=== PATIENT | female | born 1990 | race Caucasian/White ===

== ENCOUNTER 2020-03-08 21:45 | Observation (INO) | payer OTHER, SELFPAY ==
--- NOTE | ~2020-03-08 | US_ITS ---
EXAMINATION: US OB limited w BPP DATE: 03/09/2020 08:09 INDICATION: Decelerations. Third trimester. Leaking fluid. TECHNIQUE: Real-time pelvic ultrasound was performed. COMPARISON: None. FINDINGS: There is a single living fetus in vertex presentation. The placenta is posterior. heart rate i s 122 beats per minute (bpm). The amniotic fluid index is 14.2 cm, which is normal. Biophysical profile performed by the technologist: breathing (30 sec sustained breathing in 30 minutes): 2 out of 2 movement (3 gross body movements in 30 minutes): 2 out of 2 tone (one episode of fbsqhpw-hmlkyiqki-xpfqgte limb movement): 2 out of 2 Amniotic fluid pocket (2 cm): 2 out of 2 Total score: 8 out of 8 IMPRESSION: 1. Single living fetus in vertex presentation. 2. Biophysical profile 8 out of 8. Reviewed, dictated and finalized at location A. BILLING CLERK
[2020-03-09 03:00] VITALS: TEMP 37.1
[2020-03-09 06:30] VITALS: BMI 44.0
--- NOTE | 2020-03-13 07:29 | PM.OBTRLD ---
OB - Triage/Final Diagnosis Visit Information Date of evaluation: 03/09/20 Reason for evaluation: threatened labor
== END 2020-03-09 08:50 | disposition home or self-care (01) ==
PROVIDERS: Admitting Provider Obstetrics & Gynecology; Visit Provider Obstetrics & Gynecology
DX: O47.03 False labor before 37 completed weeks of gestation, third trimester (principal); Z3A.36 36 weeks gestation of pregnancy
CPT/HCPCS: 76815; 76819; 84112; G0378; G0379

== ENCOUNTER 2020-03-17 12:36 | Inpatient (IN) | payer OTHER, SELFPAY ==
[2020-03-17] VITALS (171 sets, daily range): BP systolic 79–166; BP diastolic 49–143; PULSE 64–276; TEMP 36.2–37.9; O2SAT 89–100; BMI 44.8
--- OUTSIDE RECORDS SUMMARY | 2020-03-17 13:04 | XMS_ITS | Encounter Summary ---
:1990 Author Care Team Providers Name Role Phone Raúl Russo Primary Care Provider [phone] Reason for Visit None recorded. Assessment and Plan 1. Placenta circumvallata ? US, obstetric, follow-up Discussion Note: None recorded.Patient educational handouts: No information available. Plan of Care Reminders Provider Appointments Ob Routine Anne Gastelum CNM 03/21/2020 10:30AM Lab None ? ? recorded. Referral None ? ? recorded. Procedures None ? ? recorded. Surgeries None ? ? recorded. Imaging , [place] Obstetric, Follow-up 02/09/2020 Medications Name Start Date ? ? Afluria Qd (36 mos up)(PF)60 mcg (15 mcg x4)/0 .5 mL IM syringe ? ADM 0.5ML IM UTD Boostrix Tdap 2.5 Lf unit-8 mcg-5 Lf/0.5 mL intramuscu lar syringe ? ADM 0.5ML IM UTD ? Medications Administered None recorded. Vitals None recorded. Results Lab Results None recorded. Allergies Code Code System Name Reaction Severity Onset NKDA ? ? ? Problems Name Status Onset Date Source ?
--- OUTSIDE RECORDS SUMMARY | 2020-03-17 13:04 | XMS_ITS | Encounter Summary ---
:1990 Author Care Team Providers Name Role Phone Raúl Russo Primary Care Provider [phone] Reason for Visit OB visit OB [id number] EDC 04/02/2020 LMP 06/27/2019 Assessment and Plan 1. Routine care Discussion Note: None recorded.Patient educational handouts: No information available. Plan of Care Reminders Provider Appointments Ob Routine Anne Gastelum CNM 03/21/2020 10:30AM Lab None ? ? recorded. Referral None ? ? recorded. Procedures None ? ? recorded. Surgeries None ? ? recorded. Imaging None ? ? recorded. Medications Name Start Date ? ? Afluria Qd (36 mos up)(PF)60 mcg (15 mcg x4)/0 .5 mL IM syringe ? ADM 0.5ML IM UTD Boostrix Tdap 2.5 Lf unit-8 mcg-5 Lf/0.5 mL intramuscu lar syringe ? ADM 0.5ML IM UTD ? Medications Administered None recorded. Vitals Height Weight BMI Blood Pressure 5 ft 5.5 in 281 lbs 46 kg/m2 130/86 mm[Hg] Results Lab Results None recorded. Allergies Code Code System Name Reaction Severity Onset NKDA ? ? ? Problems Name Status Onset Date Source
--- OUTSIDE RECORDS SUMMARY | 2020-03-17 13:04 | XMS_ITS | Encounter Summary ---
:1990 Author Care Team Providers Name Role Phone Raúl Russo Primary Care Provider [phone] Reason for Visit OB visit OB [id number] EDC 04/02/2020 LMP 06/27/2019 Assessment and Plan Assessment Note Patient is _28__weeks . Dis cussed plan. 1. Routine care Discussion Note: None recorded.Patient [...] BMI Blood Pressure 5 ft 5.5 in 247 lbs 40.5 kg/m2 134/87 mm[Hg] Results Lab Results None recorded. Allergies Code Code System Name Reaction Severity Onset
--- OUTSIDE RECORDS SUMMARY | 2020-03-17 13:04 | XMS_ITS ---
:1990 Author Care Team Providers Name Role Phone LESLIE MERCHANT Primary Care Provider [phone] Allergies Code Code System Name Reaction Severity Status Onset NKDA ? Medications Name Status Start Date Stop Date ? ? Adderall 20 mg tablet Completed ? 02/09/2020 Take 1 tablet every day by oral route. Adderall XR 20 mg capsule,extended release Completed ? 03/12/2020 TK 1 C PO ELECTRONICS DEPARTMENT MANAGER Afluria Qd (36 mos up)(PF)60 mcg (15 mcg x4)/0.5 mL IM s yringe Active ? Not available ADM 0.5ML IM UTD Boostrix Tdap 2.5 Lf unit-8 mcg-5 Lf/0.5 mL intramuscular syring e Active ? Not available ADM 0.5ML IM UTD Active ? Not available Problems Name Status Onset Date Source ? Active 10/19/2019 ? Procedures Date Name Performed by ? 10/05/2019 US, Obstetric, 1St Trimester [facility] [address] [place] [address] ([address]) 11/16/2019 , Obstetric, 2Nd or 3Rd Trimester [facility] [address] [place] [address] (Work [address]) 12/15/2019 US, Obstetric, Follow-up [facility] [address] [place] [address]
--- OUTSIDE RECORDS SUMMARY | 2020-03-17 13:04 | XMS_ITS | Encounter Summary ---
:1990 Author Care Team Providers Name Role Phone Raúl Russo Primary Care Provider [phone] Reason for Visit OB visit 32wks 3days Assessment and Plan 1. Routine care Discussion [...] BMI Blood Pressure 5 ft 5.5 in 258 lbs 42.3 kg/m2 128/86 mm[Hg] Results Lab Results None recorded. Allergies Code Code System Name Reaction Severity Onset NKDA ? ? ? Problems Name Status Onset Date Source ?
--- OUTSIDE RECORDS SUMMARY | 2020-03-17 13:04 | XMS_ITS | Encounter Summary ---
:1990 Author Care Team Providers Name Role Phone Raúl Russo Primary Care Provider [phone] Reason for Visit OB visit OB [id number] EDC 04/02/2020 LMP 06/27/2019 Assessment and Plan Assessment Note Patient is _30__weeks . Dis cussed plan. 1. Routine care [...] BMI Blood Pressure 5 ft 5.5 in 254 lbs 41.6 kg/m2 121/81 mm[Hg] Results Lab Results None recorded. Allergies Code Code System Name Reaction Severity Onset
--- OUTSIDE RECORDS SUMMARY | 2020-03-17 13:04 | XMS_ITS | Encounter Summary ---
:1990 Author Care Team Providers Name Role Phone Raúl Russo Primary Care Provider [phone] Reason for Visit None recorded. Assessment and Plan 1. Placenta circumvallata ? US, obstetric, follow-up Discussion Note: None recorded.Patient educational handouts: No information available. Plan of Care Reminders Provider Appointments Ob Routine Anne Gastelum CNM 03/21/2020 10:30AM Lab None ? ? recorded. Referral None ? ? recorded. Procedures None ? ? recorded. Surgeries None ? ? recorded. Imaging , [place] Obstetric, Follow-up 03/08/2020 Medications Name Start Date ? ? Afluria Qd 2019- (36 mos up)(PF)60 mcg (15 mcg x4)/0 [...]
--- OUTSIDE RECORDS SUMMARY | 2020-03-17 13:04 | XMS_ITS | Encounter Summary ---
:1990 Author Care Team Providers Name Role Phone Raúl Russo Primary Care Provider [phone] Reason for Visit OB visit OB [id number] EDC 04/02/2020 LMP 06/27/2019 Assessment and Plan 1. Routine care Discussion Note: None recorded.Patient educational handouts: No information available. Plan of Care Reminders Provider Appointments Ob Routine Anne jesus EduardopremaLESA 03/21/2020 10:30AM Lab None ? ? recorded. [...] BMI Blood Pressure 5 ft 5.5 in 280 lbs 45.9 kg/m2 138/87 mm[Hg] Results Lab Results None recorded. Allergies Code Code System Name Reaction Severity Onset NKDA ? ? ? Problems Name Status Onset Date Source
--- OUTSIDE RECORDS SUMMARY | 2020-03-17 13:04 | XMS_ITS | Encounter Summary ---
:1990 Author Care Team Providers Name Role Phone Raúl Russo Primary Care Provider [phone] Reason for Visit None recorded. Assessment and Plan 1. Medical examination for suspe cted condition ? US, obstetric, limited Discussion Note: None recorded.Patient educational handouts: No information available. Plan of Care Reminders Provider Appointments Ob Routine Anne Gastelum CNM 03/21/2020 10:30AM Lab None ? ? recorded. Referral None ? ? recorded. Procedures None ? ? recorded. Surgeries None ? ? recorded. Imaging US, [place] Obstetric, Limited 03/12/2020 Medications Name Start Date ? ? Afluria [...]
--- OUTSIDE RECORDS SUMMARY | 2020-03-17 13:04 | XMS_ITS | Encounter Summary ---
:1990 Author Care Team Providers Name Role Phone Raúl Russo Primary Care Provider [phone] Reason for Visit None recorded. Assessment and Plan 1. AND/OR placental disord er affecting management of mother ? US, obstetric, follow-up Discussion Note: None recorded.Patient educational handouts: No information available. Plan of Care Reminders Provider Appointments Ob Routine Anne Gastelum CNM 03/21/2020 10:30AM Lab None ? ? recorded. Referral None ? ? recorded. Procedures None ? ? recorded. Surgeries None ? ? recorded. Imaging [facility] Obstetric, Follow-up 01/13/2020 Medications Name Start Date ? ? Afluria [...]
--- OUTSIDE RECORDS SUMMARY | 2020-03-17 13:04 | XMS_ITS | Encounter Summary ---
:1990 Author Care Team Providers Name Role Phone Raúl Russo Primary Care Provider [phone] Reason for Visit OB visit 35wks 3days Assessment and Plan 1. Routine care [...] BMI Blood Pressure 5 ft 5.5 in 270 lbs 44.2 kg/m2 123/84 mm[Hg] Results Lab Results None recorded. Allergies Code Code System Name Reaction Severity Onset NKDA ? ? ? Problems Name Status Onset Date Source ?
--- NOTE | 2020-03-17 13:08 | WPDOBADMIT ---
Obstetrics - Admit Note Admission Note: record reviewed. No pertinent additions to the history and/or any subsequent changes in the physical findings that are not consistent with the expected course of the were found. GBS+, Pt arrived after SROM at home Additions to the history and/or subsequent changes in the physical findings follow. None.
[2020-03-17] MEDS: LACTATED RINGERS 1,000 ML 125 ML IV CONT ×2 (13:47→18:44)
[2020-03-17] MEDS: AMPICILLIN 2 GM/NS 100 ML 2 GM/100 ML BAG IVPB (13:48)
[2020-03-17 13:50] LABS: Basophils Percent Auto 0.2 % (0.2-1.2); Eosinophils Absolute Auto 0.1 K/mm3 (0-0.3); Eosinophils Percent Auto 0.9 % (0-4.4); Hematocrit 38.1 % (37.0-47.0); Hemoglobin 13.3 g/dL (12.0-15.0); Immature Granulocyte Percent A 0.8 % (0-0.5); Lymphocytes Absolute Auto 1.91 K/mm3 (0.9-3.2); Lymphocytes Percent Auto 14.7 % (18.3-44.2); Mean Corpuscular HGB Conc 34.9 g/dl (32-36); Mean Corpuscular Volume 91.8 fl (80-100); Mean Platelet Volume 10.5 fl (7.4-10.4); Monocytes Absolute Auto 0.9 K/mm3 (0.1-0.6); Monocytes Percent Auto 6.6 % (2.6-8.5); Neutrophils Percent Auto 76.8 % (45.5-73.1); Platelet Count Result 209 k/mm3 (150-375); Red Blood Count 4.15 M/mm3 (4.2-5.4); Red Cell Distribution Width 12.4 % (11.5-14.5)
--- NOTE | 2020-03-17 15:34 | WPDANESEPP ---
Anes - Eval Pre Procedure Procedure: labor epidural Date/Time: 03/17/20 15:34 Preop Diagnosis: labor pain Pre Op Diagnosis: labor Patient Data Age: 30 Gender: F Height: Weight: Last Vital Signs Pulse 83 03/17/20 15:30 BP 132/88 03/17/20 15:30 Allergies Allergy/AdvReac Type Severity Reaction Status Date / Time No Known Allergies Allergy Verified 03/05/20 14:34 Home Medications Medication Instructions Recorded Confirmed Type prenat.vits,roxanne,wtj-xays-hdxdw 1 tablet PO DAILY 03/05/20 03/05/20 History Laboratory Tests 03/17/20 03/17/20 13:36 13:36 WBC 13.0 K/mm3 H K/mm3 (4.5-10.0) RBC 4.15 M/mm3 L M/mm3 (4.2-5.4) Hgb 13.3 g/dL g/dL (12.0-15.0) Hct 38.1 % % (37.0-47.0) MCV 91.8 fl fl (80-100) MCH 32.0 pg pg (26-34) MCHC 34.9 g/dl g/dl (32-36) RDW 12.4 % % (11.5-14.5) Plt Count 209 k/mm3 k/mm3 (150-375) MPV 10.5 fl H fl (7.4-10.4) Immature Gran % (Auto) 0.8 % H % (0-0.5) Neut % (Auto) 76.8 % H % (45.5-73.1) Lymph % (Auto) 14.7 % L % (18.3-44.2) Eaton % (Auto) 6.6 % % (2.6-8.5) Eos % (Auto) 0.9 % % (0-4.4) Baso % (Auto) 0.2 % % (0.2-1.2) Lymph # (Auto) 1.91 K/mm3 K/mm3 (0.9-3.2) E[place] # (Auto) 0.9 K/mm3 H K/mm3 (0.1-0.6) Eos # (Auto) 0.1 K/mm3 K/mm3 (0-0.3) Baso # (Auto) 0.0 K/mm3 K/mm3 (0.0-0.1) Abs Immat Gran (auto) 0.10 K/mm3 H K/mm3 (0.00-0.031) Absolute Neuts (auto) 10.0 K/mm3 H K/mm3 (1.3-6.7) Absolute Nucleated RBC 0.0 K/mm3 K/mm3 (0.0-0.012) Nucleated RBC % 0.0 % % (0.0-0.2) RPR Pending Patient hx anesthesia problems: none Family hx anesthesia problems: none [facility] Family History Family History (Updated 03/05/20 @ 14:35 by Emmy Barth RN) Other Unknown family medical history Social History Social History Substance use: never Spiritual care concerns: No Exam Day of Procedure 03/17/20 15:34
--- NOTE | 2020-03-17 16:09 | LDADM ---
This patient, Zari Bradley, was admitted to Labor/Delivery/Recovery 105 on 03/17/20 at 12:36. Plans for labor, pain management and were discussed with patient. Patient oriented to hospital policies and general routines including ID bracelet, bed and alarms, visiting hours, pain management, procedures, bathroom and other care routines, personal items, smoking policy, room service/diet and guest tray routines, infant security routines, and visiting hours. Patient are encouraged to report perceived risks to care and to ask questions if they do not understand what they are told or what they should do. See OBIX for further documentation.
[2020-03-17] MEDS: AMPICILLIN 1 GM/NS 50 ML 1 GM/50 ML BAG IVPB ×2 (17:37→21:48)
[2020-03-17] MEDS: ACETAMINOPHEN 500 MG TABLET 1000 MG PO (20:17)
[2020-03-17] MEDS: ONDANSETRON INJ 4 MG/2 ML VIAL IV PUSH (21:50)
[2020-03-18] VITALS (68 sets, daily range): BP systolic 104–154; BP diastolic 68–120; PULSE 86–169; RESP 16; TEMP 36.5–37.5; O2SAT 95–100
[2020-03-18] MEDS: AMPICILLIN 1 GM/NS 50 ML 1 GM/50 ML BAG IVPB (01:51)
[2020-03-18] MEDS: OXYTOCIN 30 UNITS/NS 500 ML 30 UNITS/500 ML BAG 999 UNITS IV CONT (02:40)
--- NOTE | 2020-03-18 02:51 | PM.OBPRVD ---
OB - Delivery Note Procedure Delivery date: 03/18/20 Procedure: Vaginal delivery Induction method: none Delivery monitor: external FHT and internal uterine Route of delivery: Episiotomy description: None Laceration Description: None Specimen: Yes Quantitative Blood Loss: 371 Anesthesia type: Epidural Disposition: other ( ) [place] Baby Date of : 03/18/20 Time of : 02:34 Weeks of gestation at delivery: 37 Infant gender: Female Weight (pounds): 7 Weight (ounces): 10 presentation: vertex position: Left Occiput Anterior Placenta delivery description: Spontaneous cord vessel description: 3 Vessels, Clamped/Cut and Delayed Cord Clamping score one minute: 8 score five minutes: 9 Narrative: Mom and baby skin to skin and in stable condition.
[2020-03-18] MEDS: OXYTOCIN 30 UNITS/NS 500 ML 30 UNITS/500 ML BAG 125 UNITS IV CONT (03:14)
--- NOTE | 2020-03-18 05:38 | OBPPTRN ---
Patient transferred to post room #280 via wheelchair. Support person present. Oriented to unit, room, information board, rooming in, admission packet and security measures. Patient verbalizes understanding.
[2020-03-18] MEDS: IBUPROFEN 600 MG TABLET PO ×2 (06:22→12:07)
[2020-03-18] MEDS: MULTIVIT/MIN/PREN/FOL AC/IRON TABLET 1 TAB PO (12:07)
[2020-03-18 22:13] LABS: Rapid Plasma Reagin Non-Reactive (NonReactive)
[2020-03-19] MEDS: IBUPROFEN 600 MG TABLET PO ×2 (04:54→17:05)
[2020-03-19 05:41] LABS: Hematocrit 34.8 % (37.0-47.0); Hemoglobin 11.9 g/dL (12.0-15.0)
--- NOTE | 2020-03-19 08:00 | PC.NURSE ---
PT introductions made and plan of care discussed per post , pain management, breast feeding, supplementing and pumping, daily care activities. PT verbalized understanding of such care.
--- NOTE | 2020-03-19 08:01 | PM.OBPNVD ---
OB - PN: Subj Subjective Date/time seen: 03/19/20 08:01 Patient comments: no complaints, pain well controlled, incisional pain, tolerating diet and flatus present OB - PN: Obj Data Labs CBC & Chem 7: 03/19/20 04:44 Labs: Laboratory Results - last 24 hr 03/17/20 03/19/20 13:36 04:44 Hgb 11.9 L Hct 34.8 L RPR Non-reactive OB - PN A/P Plan day: 1 Plan: routine care Comments: No problems, routine care Time Spent With Patient Time: Total time spent is greater than 50% in coordination of care (as documented) at patient's floor/unit and/or counseling patient: Exam Const: General: comfortable, no acute distress and alert Resp: Effort & Inspection: normal respiratory effort Auscultation: no crackles, no rales and no rhonchi Cardio: Rate: regular rate Heart sounds: no click, no murmurs and no rubs GI: Inspection: non-distended GI Palp: No Tenderness to palpation present (GI) Auscultation: normal bowel sounds Other: Incision - CDI Extrem: General: normal to inspection, no pedal edema and no calf tenderness
[2020-03-19] MEDS: ACETAMINOPHEN 325 MG TABLET 650 MG PO ×2 (08:08→17:03)
[2020-03-19 08:09] VITALS: PULSE 64; RESP 18; O2SAT 98
[2020-03-19] MEDS: LANOLIN (LANSINOH) 7.5 GM CREAM 1 APPLIC TOPICAL (08:09)
[2020-03-19] MEDS: DOCUSATE SODIUM 100 MG CAPSULE PO ×2 (08:09→17:03)
[2020-03-19] MEDS: MULTIVIT/MIN/PREN/FOL AC/IRON TABLET 1 TAB PO (08:09)
[2020-03-19 08:20] VITALS: BP 108/65; PULSE 64; RESP 18; TEMP 36.2
--- NOTE | 2020-03-19 10:58 | WPDANLDPN2 ---
Anes-Prog Note L&D Date/Time: 03/19/20 10:58 Comfortable throughout: labor and delivery Neuraxial method: epidural Epidural/Spinal procedure site: clean & non-tender Neuro status: Neuro function grossly intact. Cardiovascular status: normal Respiratory status: normal Airway patency: baseline Mental status: baseline Post-Op hydration status: normal Vital Signs: Last Vital Signs Temp 36.2 C L 03/19/20 08:20 Pulse 64 03/19/20 08:20 Resp 18 03/19/20 08:20 BP 108/65 03/19/20 08:20 Pulse Ox 98 03/19/20 08:09 Pain score (VAS): 0 Post-procedural complaints: none Patient feedback: Patient satisfied with anesthetic care.
--- NOTE | 2020-03-19 12:05 | PC.NURSE ---
Consulted with patient, mother reports infant is sleepy and not latching. Mother has been given a nipple shield to assist with latch. will latch to shield, nursing for short periods then falling asleep. Mother will then bottle feed formula and pump. Mother reports pain with pumping. Both nipples are red with raw areas to areolas. Reviewed the rational with shield use. Discussed nipple shield precautions and possible complications. Instructions given on application and cleaning of shield. Patient able to return demonstration on proper application of shield. Discussed the need for regular pumping if infant continues to nurse with the shield. Patient verbalizes understanding Reviewed infant feeding cues, frequencies, duration of feedings, feeding elimination flow sheet, and signs of adequate intake. Demonstrated stimulation techniques to wake infant for feeding. Assisted with infant to breast. Reviewed positioning/alignment in cross cradle, holding breast in U hold and guided asymmetrical latch on. Infant was able to latch correctly with shield. nursed eagerly with steady draws and occasional swallowing, followed with long pausing. Reviewed signs of a correct latch, effective vs ineffective nursing and suck swallow ratio. was able to maintain latch without discomfort to mother. Nipple care reviewed. Suggested mother stimulate while feeding to keep awake and nursing effectively for increased intake and to assist with maintaining latch. Instructed mother to call out for RN assistance if she is unable to latch for feeding or she has discomfort with nursing. Instructed feeding should be initiated three hours from start of last feeding or if feeding cues are noted before. Mother voiced understanding of information shared.
--- NOTE | 2020-03-19 12:45 | PC.NURSE ---
Instructions given on breast pump care and usage, pumping schedule, nipple care, and collection and storage of breast milk. Encouraged [id number], breast massage and manual expression to stimulate supply. Pumping log provided and reviewed. Assessed patient for correct flange size changed to 27mm, placement and draw. Discussed nipple care and to keep pump draw on low. Patient verbalizes and demonstrates understanding of instructions.
[2020-03-19 20:00] VITALS: BP 121/74; PULSE 60; RESP 16; TEMP 36.4; O2SAT 99
[2020-03-20] MEDS: DOCUSATE SODIUM 100 MG CAPSULE PO (07:16)
[2020-03-20] MEDS: MULTIVIT/MIN/PREN/FOL AC/IRON TABLET 1 TAB PO (07:16)
[2020-03-20] MEDS: IBUPROFEN 600 MG TABLET PO (07:16)
[2020-03-20 07:45] VITALS: BP 118/83; PULSE 72; RESP 18; TEMP 36.4
--- NOTE | 2020-03-20 07:49 | PM.OBDSVD ---
DS: Admitting Diagnosis Admitting Diagnosis Admitting Diagnosis: labor DS: Discharge Diagnosis Discharge Diagnosis (1) , delivered: Code(s): O80 - Encounter for full-term uncomplicated delivery Status: Acute OB - DS: Summary OB Procedures : None OB Procedures Intrapartum: Spontaneous Vag Delivery OB Procedures: : None Peripartum Data Delivery Method: Natural Vaginal complications: none Status at Discharge Functional status at discharge: independent ambulation Time Spent with Patient Time attestation: Total time spent providing and/or coordinating discharge services: DS: Data Data Completed and Pending Pending studies at discharge: Pending at discharge 03/18/20 03:37 Surgical [PTH] Routine Discharge Plan Discharge Attending physician on discharge: Benjamin Wynn Discharging Clinician: Roma Rayo Anticipated Discharge Date/Time: 03/20/20 12:00 Patient Disposition: Home, Self-Care Activity: may shower and pelvic rest Diet: as tolerated Discharge Instructions: Pelvic rest for 6 weeks. Follow up in office 1 week. Patient Instructions: Antibiotic Form Stand Alone Forms: General Discharge Information Follow-up/Referrals: Benjamin Wynn MD [Physician] - (1 week) Discharge Medications: Continued prenat.vits,roxanne,[id number]-awnt-evshx Tablet 1 tablet PO DAILY RF: 0 Date of admission: 03/17/20 12:36 Primary Care Provider: PHYSICIAN,SENIOR COMMUNICATIONS ENGINEER Admitting Provider: Benjamin Wynn Attending physician on admission: Benjamin Wynn
--- NOTE | 2020-03-20 09:45 | PC.NURSE ---
Mother reports is on bili blanket and has mostly pumped and formula fed during the night. Mother states she will continue to attempt at breast at times. Mother's plans are to bottle feed until jaundice has resolved. Discussed regular pumping to stimulate supply and to offer EBM as available as part of feeding. Reviewed weaning techniques for nipple shield. Mother is is feeding as required and waking infant to feed if needed. is currently meeting outcomes for weight, output, jaundice and feeding frequencies. Mother states she feels confident to continue current feeding plan at home. Reviewed transition to breast milk, signs of adequate intake, and engorgement/relief. Discussed when to increase infant intake and signs when infant is effectively , infant may decrease supplementation. Advised not to discontinue supplementation until seen by ICP. Instructed to call ICP if intake/output less than required. Reviewed regular medications mother is taking. Information provided per Vani. Reviewed community resources on the [facility] website and in the Mom/Baby guide. Information on outpatient services provided. Mother has no further questions at this time.
[2020-03-21 07:54] VITALS: BP 121/83; PULSE 61; RESP 20; TEMP 36.7; O2SAT 99
--- NOTE | 2020-03-23 07:45 | PM.OBDSVD ---
DS: Admitting Diagnosis Admitting Diagnosis Admitting Diagnosis: labor DS: Discharge Diagnosis Discharge Diagnosis (1) , delivered: Code(s): O80 - Encounter for full-term uncomplicated delivery Status: Acute OB - DS: Summary OB Procedures : None OB Procedures Intrapartum: Spontaneous Vag Delivery OB Procedures: : None Status at Discharge Functional status at discharge: independent ambulation Overall status at discharge: patient is progressing back to baseline Time Spent with Patient Time attestation: Total time spent providing and/or coordinating discharge services: DS: Data Data Completed and Pending Completed studies during hospitalization: Pending at discharge 03/18/20 03:37 Surgical [PTH] Routine Discharge Plan Discharge Attending physician on discharge: Benjamin Wynn Consulting providers: [facility] Discharging Clinician: Roma Rayo Anticipated Discharge Date/Time: 03/20/20 12:00 Patient Disposition: Home, Self-Care Activity: may shower and pelvic rest Diet: as tolerated Discharge Instructions: Education: Mom and Baby Guide Given to: Patient Follow-Up: Call your delivering provider's office for an appointment to be seen in: 1 week Mom and baby should come to the [facility] for the follow-up appointment. Appointment Date/Time: Thursday03/21/2020 at 8:00 am Call [phone] if you are unable to keep your appointment time. BREAST CARE: * Wear a snug supportive bra. * For engorgement discomfort: Breast Feeding: * Apply warm moist washcloths * Express milk as needed to relieve engorgement * Wear loose clothing Bottle Feeding: * May apply ice packs * For sore nipples: * Identify correct latch-on * Apply warm moist washcloths before and after nursing * Air dry nipples after nursing * May apply Lansinoh cream to nipples PERINEAL CARE: * Until bleeding stops, use your priscila bottle after urinating * Change your pad frequently throughout the day * You may take sitz baths several times a day (fill your bathtub with warm water and soak for 20 minutes.) Do NOT bathe in the water * No tub baths until seen by your physician - You may shower ACTIVITY: * Rest as much as possible. * Do not exercise or lift anything heavier than your baby (such as laundry or other children.) * Avoid stairs or driving as much as possible. * Do not put anything into the vagina. No douching, tampons, or sexual activity until seen by physician. NOTIFY PHYSICIAN IF YOU HAVE ANY QUESTIONS OR IF ANY OF THE FOLLOWING SYMPTOMS OCCUR: * If your episiotomy or incision becomes red, swollen, or more painful than what you have experienced in the hospital. * If your vaginal bleeding becomes foul smelling. * If your vaginal bleeding becomes more heavy than a period or if your bleeding changes from pink to bright red. However, you may pass an occasional walnut-sized clot once or twice for the first week . * If you experience a sharp, shooting pain in you calves. * If you discover a hard, reddened area on your breast or if you experience flu-like symptoms. DIET: * Eat regular, well-balanced meals. * Drink plenty of fluids daily. If , drink to thirst.Pelvic rest for 6 weeks. Follow up in office 1 week. Patient Instructions: Antibiotic Form Follow-up/Referrals: Benjamin Wynn MD [Physician] - (1 week) Discharge Medications: Continued prenat.vits,roxanne,pwr-[id number]-oqbif Tablet 1 tablet PO DAILY RF: 0 Date of admission: 03/17/20 12:36 Primary Care Provider: PHYSICIAN,MEDICAL RECORD ADMINISTRATOR Admitting Provider: Benjamin Wynn Attending physician on admission: Roma Rayo Condition: Stable
== END 2020-03-20 16:28 | disposition home or self-care (01) | DRG 807 ==
LOC: ANHOB2 03-20 13:40 → ANHLDR 03-22 11:20 → ANHOB2 03-22 11:20
PROVIDERS: Advanced Practice Midwife; Admitting Provider Obstetrics & Gynecology; Visit Provider Obstetrics & Gynecology
DX: O99.824 Streptococcus B carrier state complicating childbirth (principal); Z37.0 Single live birth; O76 Abnormality in fetal heart rate and rhythm complicating labor and delivery; O43.113 Circumvallate placenta, third trimester; Z3A.37 37 weeks gestation of pregnancy
CPT/HCPCS: 36415; 84112; 85014; 85018; 85025; 86592; 86850; 86900; 86901; 88307; A9270; J0290; J2405; J2590; J2795; J7120